=== PATIENT | male | born 1970 | race Caucasian/White ===

== ENCOUNTER 2016-05-22 21:08 | Emergency (ER) | payer SELFPAY ==
[2016-05-22 21:23] VITALS: TEMP 98.1; BMI 20.6
[2016-05-22] MEDS ORDERED: METHYLPREDNISOLONE 125 MG/2 ML VIAL IM ONE (21:40)
[2016-05-22] MEDS ORDERED: RANITIDINE 150 MG TAB PO ONE (21:40)
[2016-05-22] MEDS ORDERED: DIPHENHYDRAMINE 25 MG CAP PO ONE (21:40)
--- NOTE | 2016-05-22 22:18 | EDPRACDOC ---
- General Information Chief Complaint: Allergic Reaction Stated Complaint: HIVES? Time Seen by Provider: 05/22/16 21:33 Information Source: Patient Mode Of Arrival: Car Home Medications: Home Medications HydrOXYzine HCl (Antihistamine [Atarax] 25 mg PO Q6 PRN #20 tab 05/22/16 Prednisone [Deltasone, Orasone] 20 mg PO BID #12 tab 05/22/16 Allergies/Adverse Reactions: Allergies Allergy/AdvReac Type Severity Reaction Status Date / Time No Known Allergies Allergy Verified 05/22/16 21:23 - History of Present Illness Medications/Treatment PHYSICIAN SURGEON Medications PHYSICIAN SURGEON (Medication/ Applied Permethrin Cream PHYSICIAN SURGEON Dose/Time) HPI: PT PRESENTS WITH RED, MACULO-PAPULAR RASH NOTED TO LEFT ARM AND NECK. STATES HE HAD A RASH NOTED TO THESE AREAS WHICH HIS SISTER TOLD HIM WERE BED BUG BITES, AND HE USED SOME PERMETHRIN ON THE AREAS. STATES AFTER THAT TIME THE RASH BECAME WORSE AND VERY RED. DENIES SHOB. NO ACUTE DISTRESS NOTED Exposure occurred: PHYSICIAN SURGEON Exposed to: Unknown Symptoms started: Hours Symptoms Developed: Reports: Rash Reaction Severity: Shortness of breath: None, Rash: Moderate, Difficult swallowing: None, Prurits: Moderate Modifying factors: improves with: Not used Reaction Location: Reports: Arms, Neck Relevant History of: Denies: O, Asthma, Prior similar episodes, Urticaria Associated Signs and Symptoms: Reports: None - Treatment Prior to ED Arrival Reported Medications/Treatment PHYSICIAN SURGEON Medications PHYSICIAN SURGEON (Medication/ Applied Permethrin Cream PHYSICIAN SURGEON Dose/Time) ED Past Medical History - History Reviewed Yes Nurses notes reviewed and agree except as marked - Patient Medical History Psychological History: Denies: Depression - Social Medical History Smoking Status: Heavy tobacco smoker (5 or more cigarettes/day or daily pipe/ cigar) EDM Review of Systems - Review of Systems ROS Negative Except as Marked: Yes All systems reviewed and were negative except as marked - Physical Exam Constitutional: Alert Oriented to: Time, Person, Place Last recorded Vital Signs: Last Vital Signs Temp 98.1 F 05/22/16 21:19 Pulse 85 05/22/16 21:19 Resp 18 05/22/16 21:19 BP 144/96 05/22/16 21:19 Pulse Ox 97 05/22/16 21:19 Oxygen Pulse Oxygen Saturation 97 O2 Device Room Air Oxygen Flow Rate Fraction of Inspired Oxygen ( FIO2) - HEENT Head: Normal ( normocephalic) Eye Exam: Normal (PERRL, EOMI, Sclera white) Oropharynx: Normal (Pharynx:Moist without exudate,Gums-no swelling) Tympanic Membrane: Normal Nose: No Symptoms Reported (septum midline) Neck: Normal (FROM, trachea at midline) - Respiratory/Cardiovascular Respiratory: Normal - CTA (BBS clear to auscultation without adventitious sounds ) Cardiovascular: Normal (RRR without murmur, gallop or rub) - GI Auscultation: Normal (NABS) Palpation: Normal (Soft,No rebound or guarding, non distended) Tenderness: Non tender Irving's Sign: Negative - Musculoskeletal Back: Normal (Non-Tender) Extremities: Normal (Normal tone, Pulses 2+ No cyanosis or edema, FROM) - Integumentary Skin: Normal, Warm, Dry Lymphatics: Normal (no adenopathy) - Neurologic Memory Impaired: Normal Motor Function: Normal (Normal tone, Pulses 2+ No cyanosis or edema, FROM) Cranial Nerve: Normal (CN II-X11 intact sensation, strength 5/5) Cerebellar: Normal Mood Description: Normal Perception: Normal ED Allergic Reaction Exam - HEENT Eye Exam: Normal Tongue: Normal Palate: Normal Buccal Mucosa: Normal Oropharynx: Normal Neck: Normal - Integumentary Skin: Normal, Warm, Dry Skin Lesion: Maculopapular, Urticarial Rash Color: Red Lymphatics: Normal - Differential Diagnosis Contact Dermatitis Decision Time to Discharge: 22:22 - Departure Disposition: Home Condition: Stable Final Diagnosis: Contact dermatitis Instructions: Contact Dermatitis Education/Counseling Given To: Patient Education/Counseling Given Regarding: Diagnosis, Treatment, Prognosis, Follow Up Referrals: Willian Russell II, MD [Staff Physician] - One Week Prescriptions: Prednisone [Deltasone, Orasone] 20 mg PO BID #12 tab Additional Instructions: TAKE BENADRYL 25MG EVERY 6 HOURS FOR THE NEXT 2 DAYS. ZANTAC 150MG ONCE A DAY EVERY DAY. FOLLOW UP WITH PCP NEXT WEEK.
[2016-05-22 22:50] VITALS: BP 142/94; PULSE 82
== END 2016-05-22 22:47 | disposition home or self-care (01) ==
LOC: ED 21:08
DX: L25.9 Unspecified contact dermatitis, unspecified cause (principal); F17.200 Nicotine dependence, unspecified, uncomplicated
CPT/HCPCS: 96372; 99283; J2930; J3490